=== PATIENT | female | born 1995 | race Caucasian/White ===

== ENCOUNTER 2021-12-17 21:41 | Emergency (ER) | payer SELFPAY ==
[2021-12-17 21:52] VITALS: BP 145/97
[2021-12-17] MEDS ORDERED: methylPREDNISolone 125 MG (Solu-MEDROL) VIAL IV STA (22:06)
[2021-12-17] MEDS ORDERED: PIPERACILLIN SODIUM/TAZOBACTAM 4.5 GM in NS (IVPB) 100 ML IV ONE (22:15)
[2021-12-17] MEDS ORDERED: LACTATED RINGERS 1,000 ML IV ONE (22:15)
[2021-12-17] MEDS ORDERED: ONDANSETRON 4 MG/2 ML (SDV) Z0FRAN IVP ONE (22:15)
[2021-12-17] MEDS ORDERED: VANCOMYCIN INJECTION 750 MG in NS (IVPB) 250 ML IV SCH (22:15)
[2021-12-17] MEDS ORDERED: TETANUS,DIPTH,PERTUSS P/F (BOOSTRIX) 0.5 ML VIAL IM ONE (22:15)
[2021-12-17 22:37] LABS: BASOPHILS % (AUTO) 0 % (0-10); EOSINOPHILS % (AUTO) 0 % (0-10); HEMATOCRIT 38 % (35-52); HEMOGLOBIN 13.2 g/dL (11.5-16.0); LYMPHOCYTES # (AUTO) 1.9 10^3/uL (1.0-4.0); LYMPHOCYTES % (AUTO) 11 % (12-44); MEAN CORPUSCULAR HEMOGLOBIN 29 pg (25-34); MEAN CORPUSCULAR HGB CONC 35 g/dL (32-36); MEAN CORPUSCULAR VOLUME 84 fL (80-99); MEAN PLATELET VOLUME 10.7 fL (9.0-12.2); MONOCYTES # (AUTO) 0.9 10^3/uL (0.0-1.0); MONOCYTES % (AUTO) 5 % (0-12); NEUTROPHILS # (AUTO) 14.8 10^3/uL (1.8-7.8); NEUTROPHILS % (AUTO) 84 % (42-75); PLATELET COUNT 233 10^3/uL (130-400); WHITE BLOOD COUNT 17.7 10^3/uL (4.3-11.0)
--- NOTE | 2021-12-17 22:53 | ED Integumentary General ---
General Chief Complaint: Skin/Wound Problems Stated Complaint: CYST POPPED ON R LEG,PAIN,HEAT,REDNESS Nursing Triage Note: PT ARRIVAL TO ER WITH VIA PRIVATE VEHICLE WITH COMPLAINT OF BITE/ABSCESS TO RIGHT LEG. PT STATES THAT THIS HAS BEEN GOING ON X1 WEEK. PT STATES THAT IT POPPED TWO DAYS IN AND PRETTY MUCH WAS ALL BUT HEALED THEN CAME BACK AND HURTS WORSE NOW. PT STATES THAT SHE HAS PAIN FROM SITE TO PELVIC AREA. PT HAS REDNESS AND SWELLING TO SITE. Source: patient (VAGUE HISTORIAN AND GIVES VERY MINIMAL INFORMATION) History of Present Illness Date Seen by Provider: Dec 17, 2021 Time Seen by Provider: 22:00 Initial Comments PT ARRIVES VIA POV WITH MALE S.O. STATES ABOUT A WEEK AGO, SHE HAD A PIMPLE ON HER RIGHT LOWER LEG / MID VARGAS AREA, AND SHE POPPED IT SINCE THEN,SHE HAS HAD INCREASED PAIN, REDNESS AND SWELLING TO THE AREA, AND PAIN IS RADIATING UP RIGHT MEDIAL THIGH HAS HAD SUBJECTIVE FEVER C/O NAUSEA C/O FATIGUE C/O HEADACHE HAS NOT TAKEN ANYTHING FOR SYMPTOMS HAS NOT SOUGHT CARE UNTIL TONIGHT. NO HISTORY OF SIMILAR DENIES ANY MEDICAL PROBLEMS LAST TETANUS IS UNKNOWN LMP MID . NORMAL NO CONTROL. PCP: NONE--STATES SHE "JUST MOVED HERE FROM [place]" Allergies and Home Medications Allergies Coded Allergies: No Known Drug Allergies (Unverified , 12/17/21) Patient Home Medication List Home Medication List Reviewed: Yes Review of Systems Review of Systems Constitutional: see HPI, fever, malaise EENTM: no symptoms reported Respiratory: no symptoms reported Cardiovascular: no symptoms reported Gastrointestinal: see HPI; No abdominal pain, No diarrhea; nausea; No vomiting Genitourinary: no symptoms reported Musculoskeletal: see HPI Skin: see HPI Psychiatric/Neurological: See HPI, Headache Endocrine: No Symptoms Reported Hematologic/Lymphatic: No Symptoms Reported Past [id number] Hx Patient Social History Tobacco Use?: Yes (1/2 PPD) Tobacco type used: Cigarettes Smoking Status: Current Everyday Smoker Use of E-Cig and/or Vaping dev: No Substance use?: No Alcohol Use?: No Pt feels they are or have been: No Immunizations Up To Date Influenza Vaccine Up-to-Date: Yes; Up-to-Date First/Initial COVID19 Vaccinat: UNKNOWN Past Medical History Surgeries: No Respiratory: No Cardiac: No Neurological: No : No Reproductive Disorders: No Genitourinary: No Gastrointestinal: No Musculoskeletal: No Endocrine: No HEENT: No Cancer: No Psychosocial: No Integumentary: No Blood Disorders: No Physical Exam Vital Signs Vital Signs - First Documented 12/17/21 12/17/21 21:52 23:03 Temp 38.1 Pulse 139 Resp 20 B/P (MAP) 145/97 (113) Pulse Ox 96 O2 Delivery Room Air Capillary Refill : Less Than 3 Seconds General Appearance: WD/WN, no apparent distress HEENT: other (SORES/SCABS TO FACE. ) Neck: normal inspection Cardiovascular: tachycardia Respiratory: normal breath sounds, no respiratory distress Gastrointestinal: non tender, soft Extremities: normal capillary refill, other (RIGHT LOWER LEG, WITH SCABBED WOUND TO ANTERIOR MID VARGAS AREA, WITH 25 X25 CM SURROUNDING ERYTHEMA AND IND URATION AND TENDERNESS, AND SLIGHT SWELLING. NO FLUCTUANCE, NO DRAINAGE. NO STREAKS. TENDERNESS EXTENDS TO MEDIAL ASPECT OF RIGHT LEG, UP TO MEDIAL ASPECT OF MID THIGH, BUT NO CORDING OR ERYTHEMA TO THIS AREA. 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, no motor/sensory deficits, alert, normal mood/affect, oriented x 3 Skin: normal color, warm/dry, other ( ABOVE) Progress/Results/Core Measures Results/Orders Lab Results Laboratory Tests Test 12/17/21 22:27 Range/Units White Blood Count 17.7 H 4.3-11.0 10^3/uL Red Blood Count 4.54 3.80-5.11 10^6/uL Hemoglobin 13.2 11.5-16.0 g/dL Hematocrit 38 35-52 % Mean Corpuscular Volume 84 80-99 fL Mean Corpuscular Hemoglobin 29 25-34 pg Mean Corpuscular Hemoglobin Concent 35 32-36 g/dL Red Cell Distribution Width 13.2 10.0-14.5 % Platelet Count 233 130-400 10^3/uL Mean Platelet Volume 10.7 9.0-12.2 fL Immature Granulocyte % (Auto) 0 % Neutrophils (%) (Auto) 84 H 42-75 % Lymphocytes (%) (Auto) 11 L 12-44 % Monocytes (%) (Auto) 5 0-12 % Eosinophils (%) (Auto) 0 0-10 % Basophils (%) (Auto) 0 0-10 % Neutrophils # (Auto) 14.8 H 1.8-7.8 10^3/uL Lymphocytes # (Auto) 1.9 1.0-4.0 10^3/uL Monocytes # (Auto) 0.9 0.0-1.0 10^3/uL Eosinophils # (Auto) 0.0 0.0-0.3 10^3/uL Basophils # (Auto) 0.0 0.0-0.1 10^3/uL Immature Granulocyte # (Auto) 0.1 0.0-0.1 10^3/uL Neutrophils % (Manual) 86 % Lymphocytes % (Manual) 10 % Monocytes % (Manual) 4 % Band Neutrophils % Blood Morphology Comment NORMAL Erythrocyte Sedimentation Rate 20 0-20 MM/HR Sodium Level 134 L 135-145 MMOL/L Potassium Level 3.5 L 3.6-5.0 MMOL/L Chloride Level 102 98-107 MMOL/L Carbon Dioxide Level 22 21-32 MMOL/L Anion Gap 10 5-14 MMOL/L Blood Urea Nitrogen 9 7-18 MG/DL Creatinine 0.79 0.60-1.30 MG/DL Estimat Glomerular Filtration Rate 106 BUN/Creatinine Ratio 11 Glucose Level 97 70-105 MG/DL Lactic Acid Level 1.07 0.50-2.00 MMOL/L Calcium Level 9.1 8.5-10.1 MG/DL Corrected Calcium 9.0 8.5-10.1 MG/DL Total Bilirubin 1.9 H 0.1-1.0 MG/DL Aspartate Amino Transf (AST/SGOT) 11 5-34 U/L Alanine Aminotransferase (ALT/SGPT) 16 0-55 U/L Alkaline Phosphatase 77 40-136 U/L C-Reactive Protein High Sensitivity 5.53 H 0.00-0.50 MG/DL Total Protein 7.4 6.4-8.2 GM/DL Albumin 4.1 3.2-4.5 GM/DL Procalcitonin 0.06 <0.10 NG/ML Serum Test, Qualitative NEGATIVE NEGATIVE My Orders Orders - SHAE KNUTSON DO Ed Iv/Invasive Line Start (12/17/21 22:06) Cbc With Automated Diff (12/17/21 22:06) Comprehensive Metabolic Panel (12/17/21 22:06) Hs C Reactive Protein (12/17/21 22:06) Hcg,Qualitative Serum (12/17/21 22:06) Lactic Acid Analyzer (12/17/21 22:06) Procalcitonin (Pct) (12/17/21 22:06) Blood Culture (12/17/21 22:06) Erythrocyte Sedimentation Rate (12/17/21 22:06) Piperacillin Sodium/Tazobactam (Zosyn Vi (12/17/21 22:15) Vancomycin Injection (Vancomycin Injecti (12/17/21 22:15) Methylprednisolone Sod Succ (Solu-Medrol (12/17/21 22:06) Vital Signs Adult Sepsis Patie Q15M (12/17/21 22:06) Remove Rings In Anticipation O (12/17/21 22:06) Ed Iv/Invasive Line Start (12/17/21 22:06) Lactated Ringers (Lr 1000 Ml Iv Solution (12/17/21 22:15) Ondansetron Injection (Zofran Injectio (12/17/21 22:15) Dipht,Pertuss(Acell),Tet Adult (Boostrix (12/17/21 22:15) Manual Differential (12/17/21 22:27) Medications Given in ED Current Medications Medications Dose Ordered Sig/Malaika Route Start Time Stop Time Status Last Admin Dose Admin Diphtheria/ Tetanus/Acell Pertussis 0.5 ml ONCE ONCE IM 12/17/21 22:15 12/17/21 22:16 DC 12/17/21 22:40 0.5 ML Lactated Ringer's 1,000 ml @ 0 mls/hr Q0M ONCE IV 12/17/21 22:15 12/17/21 22:16 DC 12/17/21 22:40 0 MLS/HR Ondansetron HCl 4 mg ONCE ONCE IVP 12/17/21 22:15 12/17/21 22:16 DC 12/17/21 22:39 4 MG Piperacillin Sod/ Tazobactam Sod 4.5 gm/Sodium Chloride 100 ml @ 200 mls/hr ONCE ONCE IV 12/17/21 22:15 12/17/21 22:44 DC 12/17/21 23:06 200 MLS/HR Vital Signs/I&O 12/17/21 12/17/21 21:52 23:03 Temp 38.1 Pulse 139 Resp 20 B/P (MAP) 145/97 (113) Pulse Ox 96 O2 Delivery Room Air 12/18/21 00:00 Intake Total 1100 ml Balance 1100 ml Blood Pressure Mean: 113 Progress Progress Note : Progress Note SEPSIS PROTOCOL INITIATED PT WITH HR 130-140 ON ARRIVAL, TEMP 100.6, BP 140/90, O2 SAT 98% ON ROOM AIR GIVEN: -IV FLUIDS -ANTIBIOTICS -SOLU-MEDROL -DPT VACCINE NO DETERIORATION IN PT'S CONDITION DURING ER STAY FOCUS EXAM AT 2300 SEPSIS CRITERIA MET; SOURCE--INTEGUMENTARY; EXAM UNCHANGED, EXCEPT HR DOWN TO 100-110. BP STABLE. ' PT WOULD NOT GIVE URINE SPECIMEN PT INITIALLY AGREED TO ADMIT, THEN AT 2355, A SHORT TIME AFTER AGREEING TO ADMIT, SHE NOW STATES SHE DOES NOT WANT TO STAY IN HOSPITAL AND WANTS TO LEAVE. PT STATES SHE "WANTS TO BE AT A HOSPITAL CLOSER TO HOME"--BUT DOES NOT WISH TO BE TRANSFERRED TO ANY PARTICULAR HOSPITAL. ON FURTHER QUESTIONING OF WHERE SHE LIVES, SHE IS EXTREMELY VAGUE AND HESITANT IN ANSWERING, THEN EVENTUALLY STATES SHE LIVES IN "[place]" , BUT PT GIVES ADDRESS OF [place], [place]. SHE CONTINUES TO REFUSE TO BE ADMITTED HERE OR TRANSFERRED TO ANOTHER FACILITY. PT DOES NOT WISH TO COMPLETE IV ANTIBIOTICS STRONGLY ENCOURAGED PT TO STAY, AND ADVISED OF RISKS INCLUDING AND LOSS OF LIMB. SHE CONTINUES TO REFUSE TO BE ADMITTED. Departure Communication (Admissions) [id number]--SPOKE WITH DR. JARVIS, HOSPITALIST, ACCEPTS PT FOR ADMIT Impression Primary Impression: Left against medical advice Additional Impressions: Sepsis Cellulitis of right lower extremity without foot [id number] (DPT) vaccination administered at current visit Disposition: 07 AGAINST MEDICAL ADVICE Condition: Against Medical Advice Departure-Patient Inst. Referrals: NO,LOCAL PHYSICIAN (PCP/Family) Primary Care Physician Images Extremities-Lower 1 - Cellulitis, Swelling, Tenderness 2 - Cellulitis, Swelling, Tenderness SHAE KNUTSON DO Dec 17, 2021 22:53
[2021-12-17 22:54] LABS: ERYTHROCYTE SEDIMENTATION RATE 20 MM/HR (0-20)
[2021-12-17 22:57] LABS: LYMPHOCYTES % (MANUAL) 10 %; MONOCYTES % (MANUAL) 4 %; NEUTROPHILS % (MANUAL) 86 %; RBC MORPH NORMAL
[2021-12-17 23:20] LABS: ALBUMIN 4.1 GM/DL (3.2-4.5); POTASSIUM 3.5 MMOL/L (3.6-5.0)
[2021-12-17 23:21] LABS: CALCIUM 9.1 MG/DL (8.5-10.1)
[2021-12-17 23:23] LABS: TOTAL PROTEIN 7.4 GM/DL (6.4-8.2)
[2021-12-17 23:24] LABS: BILIRUBIN,TOTAL 1.9 MG/DL (0.1-1.0)
[2021-12-17 23:26] LABS: CREATININE SERUM 0.79 MG/DL (0.60-1.30)
== END 2021-12-17 23:40 | disposition left against medical advice (07) ==
LOC: ER 21:44
DX: A41.9 Sepsis, unspecified organism (principal); L03.115 Cellulitis of right lower limb; F17.210 Nicotine dependence, cigarettes, uncomplicated; Z23 Encounter for immunization; Z28.311 Partially vaccinated for COVID-19
CPT/HCPCS: 36415; 80053; 83605; 84145; 84703; 85007; 85025; 85027; 85652; 86141; 87040; 87077; 90715